=== PATIENT | male | born 1995 | race African-American/Black ===

== ENCOUNTER 2017-10-21 20:37 | Emergency (ER) | payer OTHER ==
[~2017-10-21] VITALS: Ht 182.9 cm; Wt 85.9 kg
[2017-10-21 22:26] VITALS: BP 149/98
== END 2017-10-21 22:29 | disposition home or self-care (01) ==
LOC: EMS 20:38
DX: J40 Bronchitis, not specified as acute or chronic (principal)
CPT/HCPCS: 71020; 99284

== ENCOUNTER 2017-11-25 13:09 | Emergency (ER) | payer OTHER ==
[~2017-11-25] VITALS: Ht 180.3 cm; Wt 86.4 kg
[2017-11-25] MEDS ORDERED: CefTRIAXone SODIUM 1 GM/VIAL IM ONE (14:00)
[2017-11-25] MEDS ORDERED: AZITHROMYCIN 250 MG TABLET PO ONE (14:00)
[2017-11-25 14:15] VITALS: BP 125/75
[2017-11-25] MEDS ORDERED: LIDOCAINE HCL 1% 10 ML VIAL INJ ONE (14:15)
== END 2017-11-25 14:43 | disposition home or self-care (01) ==
LOC: EMS 13:10
DX: A56.01 Chlamydial cystitis and urethritis (principal); R33.9 Retention of urine, unspecified; F17.210 Nicotine dependence, cigarettes, uncomplicated
CPT/HCPCS: 96372; 99283; J0696; J3490

== ENCOUNTER 2018-07-18 09:34 | Emergency (ER) | payer SELFPAY ==
[~2018-07-18] VITALS: Ht 180.3 cm; Wt 86.4 kg
[2018-07-18 11:37] VITALS: BP 139/70
[2018-07-18] MEDS ORDERED: LIDOCAINE HCL/PF 1% 2 ML VIAL IM ONE (11:45)
[2018-07-18] MEDS ORDERED: AZITHROMYCIN 250 MG TABLET PO ONE (11:45)
[2018-07-18] MEDS ORDERED: CefTRIAXone SODIUM 1 GM/VIAL IM ONE (11:45)
== END 2018-07-18 12:11 | disposition home or self-care (01) ==
LOC: EMS 09:34
DX: N34.2 Other urethritis (principal); F12.90 Cannabis use, unspecified, uncomplicated
CPT/HCPCS: 96372; 99283; J0696; J3490

== ENCOUNTER 2019-11-01 14:54 | Emergency (ER) | payer MEDICAID ==
[~2019-11-01] VITALS: Ht 180.3 cm; Wt 88.6 kg
[2019-11-01 15:31] LABS: HEMOGLOBIN 15.4 g/dL (13.5-17.5); MEAN CORPUSCULAR HEMOGLOBIN 31.6 pg (26.0-34.0); MEAN CORPUSCULAR VOLUME 90 fL (80-100); PLATELET COUNT (AUTO) 320 K/uL (150-450); RED BLOOD CELL COUNT(AUTO) 4.88 MIL/uL (4.50-5.90); RED CELL DISTRIBUTION WIDTH 11.9 % (11.5-14.5)
[2019-11-01 15:44] LABS: AMPHET/METH SCREEN,URINE NEGATIVE (NEGATIVE); BARBITURATE SCREEN, URINE NEGATIVE (NEGATIVE); BENZODIAZEPINES SCREEN,URINE NEGATIVE (NEGATIVE); CANNABINOID SCREEN,URINE POSITIVE (NEGATIVE); COCAINE SCREEN,URINE POSITIVE (NEGATIVE); METHADONE SCREEN, URINE NEGATIVE (NEGATIVE); OPIATE SCREEN,URINE NEGATIVE (NEGATIVE)
[2019-11-01 15:46] LABS: PHENCYCLIDINE SCREEN,URINE NEGATIVE (NEGATIVE)
[2019-11-01 16:01] LABS: BAND NEUTROPHILS % (MANUAL) 2 % (0-5); LYMPHOCYTES % (MANUAL) 28 % (22-44); MONOCYTES % (MANUAL) 6 % (2-9); REACTIVE LYMPHOCYTES 17 % (0-0); SEGMENTED NEUTROPHILS % 47 % (40-70)
[2019-11-01 16:02] LABS: PLATELET MORPHOLOGY COMMENT NORMAL
[2019-11-01 16:04] LABS: ANION GAP 6 mmol/L (8-16); CALCIUM, TOTAL 9.2 mg/dL (8.8-10.5); CARBON DIOXIDE 31 mmol/L (22-29); CHLORIDE 101 mmol/L (98-107); CREATININE 1.29 mg/dL (0.60-1.30); GLOMERULAR FILTR. RATE CALC > 60 mL/min (>60); GLUCOSE,RANDOM 85 mg/dL (70-110); POTASSIUM 3.8 mmol/L (3.5-5.1); SODIUM SERUM 138 mmol/L (136-145); UREA NITROGEN, BLOOD 10 mg/dL (7-18)
[2019-11-01 16:09] LABS: ALANINE AMINOTRANSFERASE 187 U/L (12-78); ALBUMIN 4.2 g/dL (3.4-5.0); ALKALINE PHOSPHATASE 75 U/L (46-116); ASPARTATE AMINOTRANSFERASE 55 U/L (15-37); BILIRUBIN,TOTAL 2.3 mg/dL (0.1-1.0); LIPASE 129 U/L (73-393)
[2019-11-01 16:22] VITALS: BP 132/80
== END 2019-11-01 16:28 | disposition home or self-care (01) ==
LOC: EMS 14:56
DX: R11.2 Nausea with vomiting, unspecified (principal); R10.9 Unspecified abdominal pain; F12.90 Cannabis use, unspecified, uncomplicated
CPT/HCPCS: 36415; 80053; 80307; 83690; 85025; 99283; G0480

== ENCOUNTER 2020-02-11 14:49 | Inpatient (IN) | payer SELFPAY ==
[~2020-02-11] VITALS: Ht 180.3 cm; Wt 92.7 kg
[2020-02-11 15:59] LABS: BASOPHILS % (AUTO) 0.5 % (0.0-2.0); EOSINOPHILS % (AUTO) 1.7 % (1.0-6.0); LYMPHOCYTES # (AUTO) 1.9 K/uL (1.0-4.8); LYMPHOCYTES % (AUTO) 45.8 % (22.0-44.0); MEAN CORPUSCULAR HEMOGLOBIN 31.3 pg (26.0-34.0); MEAN CORPUSCULAR HGB CONC 34.2 G/dL (31.0-37.0); MEAN CORPUSCULAR VOLUME 92 fL (80-100); MONOCYTES # (AUTO) 0.4 K/uL (0.1-1.0); MONOCYTES % (AUTO) 10.4 % (2.0-9.0); NEUTROPHILS # (AUTO) 1.8 K/uL (1.8-7.7); NEUTROPHILS % (AUTO) 41.6 % (40.0-70.0); PLATELET COUNT (AUTO) 320 K/uL (150-450); RED CELL DISTRIBUTION WIDTH 12.2 % (11.5-14.5)
[2020-02-11 16:14] LABS: ANION GAP 5 mmol/L (8-16); CALCIUM, TOTAL 9.1 mg/dL (8.8-10.5); CARBON DIOXIDE 32 mmol/L (22-29); CHLORIDE 102 mmol/L (98-107); CREATININE 1.33 mg/dL (0.60-1.30); GLOMERULAR FILTR. RATE CALC > 60 mL/min (>60); GLUCOSE,RANDOM 75 mg/dL (70-110); POTASSIUM 3.4 mmol/L (3.5-5.1); SODIUM SERUM 139 mmol/L (136-145); UREA NITROGEN, BLOOD 12 mg/dL (7-18)
[2020-02-11 16:18] LABS: SALICYLATE < 2.8 mg/dL (2.8-20.0)
[2020-02-11 16:19] LABS: ALANINE AMINOTRANSFERASE 36 U/L (12-78); ALBUMIN 4.2 g/dL (3.4-5.0); ALKALINE PHOSPHATASE 75 U/L (46-116); ASPARTATE AMINOTRANSFERASE 15 U/L (15-37); BILIRUBIN,TOTAL 1.8 mg/dL (0.1-1.0); TOTAL PROTEIN, SERUM 7.6 g/dL (6.4-8.2)
[2020-02-11 16:31] LABS: ACETAMINOPHEN < 2 mcg/mL (10-30)
[2020-02-11 19:34] LABS: AMPHET/METH SCREEN,URINE NEGATIVE (NEGATIVE); BARBITURATE SCREEN, URINE NEGATIVE (NEGATIVE); BENZODIAZEPINES SCREEN,URINE NEGATIVE (NEGATIVE); CANNABINOID SCREEN,URINE POSITIVE (NEGATIVE); COCAINE SCREEN,URINE POSITIVE (NEGATIVE); METHADONE SCREEN, URINE NEGATIVE (NEGATIVE); OPIATE SCREEN,URINE NEGATIVE (NEGATIVE)
[2020-02-11 19:40] LABS: PHENCYCLIDINE SCREEN,URINE NEGATIVE (NEGATIVE)
[2020-02-11] MEDS ORDERED: HALOPERIDOL 5 MG TABLET PO PRN (20:00)
[2020-02-11] MEDS ORDERED: ZOLPIDEM TARTRATE 10 MG TABLET PO PRN (20:00)
[2020-02-11] MEDS ORDERED: LORazepam 2 MG TABLET PO PRN (20:00)
[2020-02-11] MEDS ORDERED: INFLUENZA VIRUS VACCINE QVS 2019-20 (3YR+)/PF 60 MCG/0.5 ML SYRINGE IM ONE (22:30)
[2020-02-11] MEDS ORDERED: POTASSIUM CHLORIDE 10 MEQ ER TABLET PO ONE (22:45)
[2020-02-11 23:06] VITALS: BP 138/92
[2020-02-12 07:07] VITALS: BP 116/68
[2020-02-12 09:00] LABS: CHOL/HDL RATIO 4.3 (4.2-7.3); POTASSIUM 4.1 mmol/L (3.5-5.1)
[2020-02-12] MEDS ORDERED: DiphenhydrAMINE HCL 50 MG/ML VIAL ONE (09:54)
[2020-02-12] MEDS ORDERED: LORazepam 2 MG/ML VIAL ONE (09:54)
[2020-02-12] MEDS ORDERED: LORazepam 2 MG/ML VIAL IM ONE (10:00)
[2020-02-12] MEDS ORDERED: HALOPERIDOL LACTATE 5 MG/ML VIAL IM ONE (10:00)
[2020-02-12] MEDS ORDERED: DiphenhydrAMINE HCL 50 MG/ML VIAL IM ONE (10:00)
[2020-02-12] MEDS ORDERED: MAGNESIUM HYDROXIDE SUSPENSION 30 ML UDCUP PO PRN (14:30)
[2020-02-12] MEDS ORDERED: LOPERAMIDE HCL 2 MG CAPSULE PO PRN (14:30)
[2020-02-12] MEDS ORDERED: MAG HYDROX/AL HYDROX/SIMETH ES 30 ML SUSPENSION UDCUP PO PRN (14:30)
[2020-02-12] MEDS ORDERED: CloNIDine HCL 0.1 MG TABLET PO PRN (14:30)
[2020-02-12] MEDS ORDERED: PETROLATUM,WHITE 28 GM JELLY TP PRN (14:30)
[2020-02-12] MEDS ORDERED: IBUPROFEN 400 MG TABLET PO PRN (14:30)
[2020-02-12] MEDS ORDERED: DOCUSATE SODIUM 100 MG CAPSULE PO PRN (14:30)
[2020-02-12] MEDS ORDERED: GuaiFENesin/D-METHORPHAN [SUGAR-FREE] 200-20MG/10 ML SYRUP UDCUP PO PRN (14:30)
[2020-02-12] MEDS ORDERED: ONDANSETRON HCL 4 MG TABLET PO PRN (14:30)
[2020-02-12] MEDS ORDERED: ACETAMINOPHEN 325 MG TABLET PO PRN (14:30)
[2020-02-12] MEDS ORDERED: ALBUTEROL SULFATE HFA 90 MCG/PUFF 8 GM INHALER IH PRN (14:30)
[2020-02-12] MEDS ORDERED: NICOTINE 14 MG/24 HOUR PATCH TD PRN (14:30)
[2020-02-12 16:10] VITALS: BP 113/69
[2020-02-13 05:45] VITALS: BP 116/70
[2020-02-13 08:36] VITALS: BP 127/61
[2020-02-13] MEDS ORDERED: SERT50TA12 PO (13:45)
[2020-02-14] MEDS ORDERED: SERTRALINE HCL 50 MG TABLET PO SCH (09:00)
== END 2020-02-13 14:00 | disposition home or self-care (01) | DRG 885 ==
LOC: EMS 14:56 → B2S 21:02 → B3A 02-12 11:05
DX: F32.2 Major depressive disorder, single episode, severe without psychotic features (principal); R45.851 Suicidal ideations; F14.10 Cocaine abuse, uncomplicated; F12.10 Cannabis abuse, uncomplicated; D72.819 Decreased white blood cell count, unspecified; E87.6 Hypokalemia; R79.89 Other specified abnormal findings of blood chemistry; T43.222A Poisoning by selective serotonin reuptake inhibitors, intentional self-harm, initial encounter; Y92.89 Other specified places as the place of occurrence of the external cause; T44.3X2A Poisoning by other parasympatholytics [anticholinergics and antimuscarinics] and spasmolytics, intentional self-harm, initial encounter
CPT/HCPCS: 84132; 96372; G0480; G0481; J1200; J1630; J2060

== ENCOUNTER 2021-06-21 01:40 | Emergency (ER) | payer SELFPAY ==
[~2021-06-21] VITALS: Ht 180.3 cm; Wt 95.5 kg
[~2021-06-21 01:40] MED LIST: SERT-158 PO
[2021-06-21 02:43] VITALS: BP 145/89
[2021-06-21] MEDS: CefTRIAXone SODIUM 1 GM/VIAL IM ONE (04:45)
[2021-06-21] MEDS: LIDOCAINE/PF 1% 2 ML VIAL IM ONE (04:46)
[2021-06-21] MEDS: AZITHROMYCIN 500 MG TABLET PO ONE (04:46)
[2021-06-21 06:12] LABS: APPEARANCE,URINE CLEAR (CLEAR); BILIRUBIN,URINE NEGATIVE (NEGATIVE); GLUCOSE, URINE (UA) NEGATIVE (NEGATIVE); KETONES,URINE NEGATIVE (NEGATIVE); LEUKOCYTE ESTERASE ,URINE MODERATE (NEGATIVE); NITRATE,URINE NEGATIVE (NEGATIVE); OCCULT BLOOD,URINE NEGATIVE (NEGATIVE); PROTEIN,URINE NEGATIVE (NEGATIVE)
[2021-06-21 06:17] LABS: BACTERIA,URINE Few /HPF (None Seen); RBC,URINE 0-2 /HPF (0-2)
[2021-06-21] MEDS: PHENAZOPYRIDINE HCL 100 MG TABLET PO ONE (06:32)
== END 2021-06-21 06:32 | disposition home or self-care (01) ==
LOC: EMS 01:42
DX: N34.2 Other urethritis (principal); F32.9 Major depressive disorder, single episode, unspecified; F17.210 Nicotine dependence, cigarettes, uncomplicated; F14.90 Cocaine use, unspecified, uncomplicated; F12.90 Cannabis use, unspecified, uncomplicated
CPT/HCPCS: 81001; 87086; 87491; 87591; 96372; 99283; A9575; J0696; J3490